=== PATIENT | male | born 1990 | race Two or more races ===

== ENCOUNTER 2016-08-16 15:19 | Emergency (ER) | payer MEDICAID ==
[~2016-08-16] VITALS: Ht 157.5 cm; Wt 50.8 kg
[~2016-08-16 15:19] MED LIST: LEVETIRACETAM500 MG ORAL; TOPIRAMATE25 MG ORAL
[2016-08-16 15:30] VITALS: BP 123/74
[2016-08-16 15:55] LABS: MEAN CORPUSCULAR HEMOGLOBIN 32.6 PG (27.0-31.0); MEAN CORPUSCULAR HGB CONC 33.7 G/DL (32.0-36.0); MEAN CORPUSCULAR VOLUME 97 FL (80-99); MEAN PLATELET VOLUME 6.5 FL (6.5-10.1); PLATELET COUNT 265 K/UL (150-450); RED BLOOD COUNT 5.08 M/UL (4.70-6.10); RED CELL DISTRIBUTION WIDTH 11.7 % (11.6-14.8)
[2016-08-16 16:00] LABS: WHITE BLOOD COUNT 24.2 K/UL (4.8-10.8)
--- NOTE | 2016-08-16 16:05 | Emergency Room Report ---
History of Present Illness General Chief Complaint: Seizure Source: Patient, Family Member, EMS Present Illness HPI 26-year-old male presents to ED complaining of seizure. Per EMS patient had seizure at home. Patient has history of seizures-takes Keppra. States he is compliant with his medications. States he smoked marijuana today. Patient is here complaining of headache. 11/16. Throbbing. Localized over forehead. Nonradiating. No aggravating or relieving factors. Denies fevers or chills. Denies neck stiffness. Denies nausea or vomiting. Patient states he did not remember whether he hit his head or not. Does not remember where he was when he had a seizure. Denies any other associated symptoms Allergies: Coded Allergies: No Known Allergies (Unverified , 01/12/16) Patient History Past Medical History: seizures Past Surgical History: none Pertinent Family History: none Social History: Reports: drug use, Denies: alcohol use, smoking Immunizations: UTD Reviewed Nursing Documentation: PMH: Agreed, PSxH: Agreed Nursing Documentation-PMH Past Medical History: No History, Except For Hx Diabetes: No - possible diabetic Hx Seizures: Yes Review of Systems All Other Systems: negative except mentioned in HPI Physical Exam Vital Signs Date Time Temp Pulse Resp B/P Pulse Ox O2 Delivery O2 Flow Rate FiO2 08/16/16 15:12 98.4 56 18 145/74 98 Room Air Sp02 EP Interpretation: reviewed, normal General Appearance: no apparent distress, GCS 15, non-toxic, other - lethargic Head: normocephalic Eyes: bilateral eye PERRL, bilateral eye normal inspection ENT: normal ENT inspection Neck: normal inspection Respiratory: chest non-tender, lungs clear, normal breath sounds, speaking full sentences Cardiovascular #1: regular rate, rhythm, no edema Gastrointestinal: normal bowel sounds, non tender, soft, non-distended, no guarding, no rebound Rectal: deferred Genitourinary: no CVA tenderness Musculoskeletal: normal inspection Neurologic: alert, responsive, motor strength/tone normal, sensory intact, speech normal, other - postictal Psychiatric: other - postictal Skin: normal inspection Lymphatic: normal inspection Medical Decision Making Diagnostic Impression: Primary Impression: Seizure disorder ER Course Hospital Course 26-year-old M presents to ED status post seizure. h/o THC abuse Differential diagnosis includes- breakthrough seizure, alcohol abuse, noncompliance with medication Clinical course Patient placed on stretcher. Initial history and physical I ordered labs, IV fluids, CT brain Labs-electrolytes okay, no leukocytosis, hemoglobin/hematocrit stable. CT Brain area of hypoattenuation in frontal lobe I discussed CT findings with patient; he is aware of this. States this is the reason why he is taking seizure medication. He will followup with his PMD Patient allowed to rest is now awake alert oriented x3. ambulating without difficulty. Family is at bedside Diagnosis - seizure disorder stable and discharged to home. take keppra as directed. Followup with PMD. Return to ED if symptoms recur or worsen Labs Test 08/16/16 15:32 White Blood Count 24.2 K/UL (4.8-10.8) Red Blood Count 5.08 M/UL (4.70-6.10) Hemoglobin 16.6 G/DL (14.2-18.0) Hematocrit 49.2 % (42.0-52.0) Mean Corpuscular Volume 97 FL (80-99) Mean Corpuscular Hemoglobin 32.6 PG (27.0-31.0) Mean Corpuscular Hemoglobin Concent 33.7 G/DL (32.0-36.0) Red Cell Distribution Width 11.7 % (11.6-14.8) Platelet Count 265 K/UL (150-450) Mean Platelet Volume 6.5 FL (6.5-10.1) Neutrophils (%) (Auto) % (45.0-75.0) Lymphocytes (%) (Auto) % (20.0-45.0) Monocytes (%) (Auto) % (1.0-10.0) Eosinophils (%) (Auto) % (0.0-3.0) Basophils (%) (Auto) % (0.0-2.0) Differential Total Cells Counted 100 Neutrophils % (Manual) 82 % (45-75) Lymphocytes % (Manual) 7 % (20-45) Monocytes % (Manual) 6 % (1-10) Eosinophils % (Manual) 0 % (0-3) Basophils % (Manual) 0 % (0-2) Band Neutrophils 5 % (0-8) Platelet Estimate Adequate Platelet Morphology Normal Sodium Level 138 mEQ/L (135-145) Potassium Level 3.8 mEQ/L (3.4-4.9) Chloride Level 94 mEQ/L (98-107) Carbon Dioxide Level 16 mEQ/L (20-30) Anion Gap 28 (5-15) Blood Urea Nitrogen 11 mg/dL (7-23) Creatinine 1.1 mg/dL (0.7-1.2) Estimat Glomerular Filtration Rate > 60 mL/min (>60) Glucose Level 236 mg/dL (74-106) Calcium Level 9.2 mg/dL (8.6-10.2) Total Bilirubin 0.4 mg/dL (0.0-1.2) Aspartate Amino Transf (AST/SGOT) 20 U/L (5-40) Alanine Aminotransferase (ALT/SGPT) 10 U/L (3-41) Alkaline Phosphatase 70 U/L (40-129) Total Protein 7.6 g/dL (6.6-8.7) Albumin 4.8 g/dL (3.5-5.2) Globulin 2.8 g/dL Albumin/Globulin Ratio 1.7 (1.0-2.7) Salicylates Level < 1 mg/dL (10-30) Acetaminophen Level < 10 ug/mL (10-30) Serum Alcohol < 10 mg/dL CT/MRI/US Diagnostic Results CT/MRI/US Diagnostic Results : Imaging Test Ordered: CT Head Impression area of hypoattenuation in front lobe. no mass effect. no bleed. Last Vital Signs Date Time Temp Pulse Resp B/P Pulse Ox O2 Delivery O2 Flow Rate FiO2 08/16/16 15:30 61 20 Room Air 08/16/16 15:30 98.2 123/74 100 Status: improved Disposition: HOME, SELF-CARE Condition: Stable Referrals: NOT CHOSEN BLANCA/,REFERRING (PCP) KAREN BOO M.D. Aug 16, 2016 16:05
[2016-08-16 16:19] LABS: ACETAMINOPHEN < 10 ug/mL (10-30); ALANINE AMINOTRANSFERASE 10 U/L (3-41); ALBUMIN/GLOBULIN RATIO 1.7 (1.0-2.7); ALCOHOL < 10 mg/dL; ANION GAP 28 (5-15); ASPARTATE AMINO TRANSFERASE 20 U/L (5-40); CALCIUM 9.2 mg/dL (8.6-10.2); CARBON DIOXIDE 16 mEQ/L (20-30); CHLORIDE 94 mEQ/L (98-107); CREATININE 1.1 mg/dL (0.7-1.2); GLOMERULAR FILTRATION RATE > 60 mL/min (>60); HEMOLYSIS 5; POTASSIUM 3.8 mEQ/L (3.4-4.9); SODIUM 138 mEQ/L (135-145); TOTAL PROTEIN 7.6 g/dL (6.6-8.7)
--- NOTE | 2016-08-16 16:35 | Diagnostic Imaging Report ---
Indications: Seizure Technique: Spiral acquisitions obtained through the brain. Angled axial and coronal 5 x 5 mm slices were reconstructed. Total dose length product 1527 mGycm. CTDI vol(s) 70 mGy Comparison: Findings: In the inferior right frontal region, there is a slightly hyperdense masslike lesion with central low attenuation and small calcifications,. Boundaries are somewhat ill-defined of the lesion appears to measure approximately 2.3 cm transverse by 2.3 cm AP by 2.7 cm craniocaudad. There is no associated edema. There is only minimal local mass effect. Uncertain as to whether intra-axial or extra-axial, but suspect intra-axial No acute hemorrhage or edema. No other mass effect or midline shift. Normal hilton-white differentiation. Normal size ventricles and extra-axial CSF spaces. Impression: Hyperattenuating masslike lesion with calcifications in the inferior right frontal lobe, probably intra-axial. Neoplasm a possibility. Recommend further evaluation with contrast MRI. No significant mass effect related to such Negative for acute intracranial bleed. Findings discussed by phone with Dr. Walker in the emergency room at the time of interpretation The CT scanner at [facility] is accredited by the [employer] and the scans are performed using protocols designed to limit radiation exposure to as low as reasonably achievable to attain images of sufficient resolution adequate for diagnostic evaluation.
[2016-08-16] MEDS ORDERED: Tylenol #3 tab (300mg/30mg) ORAL ONE (16:45)
[2016-08-16 16:52] LABS: BAND NEUTROPHILS % (MANUAL) 5 % (0-8); BASOPHILS % (MANUAL) 0 % (0-2); EOSINOPHILS % (MANUAL) 0 % (0-3); LYMPHOCYTES % (MANUAL) 7 % (20-45); NEUTROPHILS % (MANUAL) 82 % (45-75); PLATELET ESTIMATE ADEQUATE; PLATELET MORPHOLOGY NORMAL; TOTAL CELLS COUNTED 100
[2016-08-16 17:45] VITALS: BP 114/56
== END 2016-08-16 17:45 | disposition home or self-care (01) ==
LOC: EDBD 15:19 → EMR 15:40
DX: G40.909 Epilepsy, unspecified, not intractable, without status epilepticus (principal); F19.10 Other psychoactive substance abuse, uncomplicated
CPT/HCPCS: 36415; 70450; 80053; 80329; 85007; 85025; 96361; 96374; 99284; J2405; J7040

== ENCOUNTER 2016-08-20 19:31 | Emergency (ER) | payer MEDICAID ==
[~2016-08-20] VITALS: Ht 167.6 cm; Wt 59.0 kg
--- NOTE | 2016-08-20 19:56 | Emergency Room Report ---
History of Present Illness General Chief Complaint: Fever Source: Patient Present Illness HPI Patient presents with sore throat fever chills last 2 days. He did have a flu vaccine this year. Pain in his throat is severe. He took Tylenol and Motrin at 5 PM tonight. He feels weak when he stands. No NVD, joint pain, neck pain, SEGURA, rashes, dysuria. In addition the patient has a history of seizures. His last seizure was on Monday. He states he has been able to take his antiseizure medication. Allergies: Coded Allergies: No Known Allergies (Unverified , 01/12/16) Patient History Past Medical History: see triage record Social History Narrative at home Reviewed Nursing Documentation: PMH: Agreed, PSxH: Agreed Nursing Documentation-PMH Hx Diabetes: No - possible diabetic Hx Seizures: Yes Review of Systems All Other Systems: negative except mentioned in HPI Physical Exam Vital Signs Date Time Temp Pulse Resp B/P Pulse Ox O2 Delivery O2 Flow Rate FiO2 08/20/16 19:41 100.8 110 20 103/52 95 Room Air Sp02 EP Interpretation: reviewed, normal General Appearance: no apparent distress, GCS 15, other - weak Head: normocephalic, atraumatic Eyes: bilateral eye PERRL, bilateral eye normal inspection ENT: TMs + canals normal, moist mucus membranes, tonsillar exudate Neck: supple, no meningismus Respiratory: lungs clear, normal breath sounds Cardiovascular #1: tachycardia Cardiovascular #2: 2+ radial (R) Gastrointestinal: normal inspection, normal bowel sounds, non tender, no mass, non-distended Musculoskeletal: back normal, gait/station normal, normal range of motion Neurologic: alert, oriented x3, grossly normal Psychiatric: mood/affect normal Skin: normal inspection, warm/dry Medical Decision Making Diagnostic Impression: Primary Impression: Strep pharyngitis Additional Impression: Volume depletion ER Course Patient with weakness and sore throat with fever. Exam c/w strep pharyngitis. Also significant fever and volume depletion. Will treat with antibiotics, decadron and fluids. Comorbidity of seizures noted. Last sz last week. Consideration of giving dose of IV antiseizure medications, but patient insists he has taken medications. After 1st liter, patient less tachycardic and febrile, but increased HR with sitting. Will give second liter fluids. Improved after second liter. Patient stable for outpatient observation and treatment. Last Vital Signs Date Time Temp Pulse Resp B/P Pulse Ox O2 Delivery O2 Flow Rate FiO2 08/20/16 19:41 100.8 110 20 103/52 95 Room Air Status: improved Disposition: HOME, SELF-CARE Condition: Improved Scripts Acetaminophen (Tylenol) 325 Mg Tablet 650 MG ORAL Q6H Y for Prn Pain/Headache/Temp > 101, #30 TAB 0 Refills Prov: Meliton Ayala M.D. 08/20/16 Ibuprofen* (MOTRIN*) 600 Mg Tablet 600 MG ORAL Q6H Y for For Pain, #16 TAB Prov: Meliton Ayala M.D. 08/20/16 Amoxicillin/Potassium Clav 500-125 Tablet* (AUGMENTIN 500-125 TABLET*) 1 Each Tablet 1 TAB ORAL THREE TIMES A DAY, #21 TAB Prov: Meliton Ayala M.D. 08/20/16 Meliton Ayala M.D. Aug 20, 2016 19:56
[2016-08-20] MEDS ORDERED: Ketorolac 30mg Inj IV ONE (20:00)
[2016-08-20] MEDS ORDERED: cefTRIAXone 1 GM in NS 55 ML IVPB ONE (20:00)
[2016-08-20] MEDS ORDERED: Dexamethasone 4mg/ml vial IVP ONE (20:00)
[2016-08-20 20:17] VITALS: BP 97/83
[2016-08-20 21:43] VITALS: BP 111/63
[2016-08-20] MEDS ORDERED: AUGMENTIN 500-1 EACH ORAL (21:59)
[2016-08-20] MEDS ORDERED: IBUPROFEN600 MG ORAL (21:59)
[2016-08-20] MEDS ORDERED: TYLENOL325 MG ORAL (22:13)
[2016-08-20 22:37] VITALS: BP 115/70
[2016-08-20 22:40] VITALS: BP 115/70
== END 2016-08-20 22:40 | disposition home or self-care (01) ==
LOC: EMR 20:00
DX: J02.0 Streptococcal pharyngitis (principal); E86.9 Volume depletion, unspecified
CPT/HCPCS: 96360; 96361; 96374; 96375; 99284; J0696; J1100; J1885